=== PATIENT | male | born 1990 | race Caucasian/White ===

== ENCOUNTER 2020-11-13 11:46 | Day surgery (SDC) | payer OTHER ==
[2020-11-13] VITALS (7 sets, daily range): BP systolic 140–146; BP diastolic 78–84; PULSE 49–98; TEMP 97.7–99.6
[~2020-11-13] VITALS: Ht 193 cm; Wt 98.6 kg
[~2020-11-13 11:46] MED LIST: NO HOME MEDICATIONS
--- NOTE | 2020-11-13 14:15 | NUR ---
Patient continues to await surgery. Apprehensive while waiting. Order for Valium 10mg po and given. Spouse in room. IV fluids infusing.
--- NOTE | 2020-11-13 18:30 | NUR ---
Patient received post op from [facility] nurse Sofi. Patient at bedside. Vitals stable on room air. One tab Percocet for pain, we discussed side effects of norco. He tolerated his meal, denies nausea. Iv to Int.
--- NOTE | 2020-11-13 19:38 | NUR ---
Pt. has met discharge criteria. Pt. tolerating po, urinating, ambulating and tolerating pain. Discharge paper work given, and reviewed. Pt. voices understanding. INT discontinued from rt. hand. Pt. dressed and escorted out by this nurse.
== END 2020-11-13 19:45 | disposition home or self-care (01) ==
LOC: SDCO 11:46 → SURG 17:57 → SDCO 19:45
DX: C62.92 Malignant neoplasm of left testis, unspecified whether descended or undescended (principal); E80.4 Gilbert syndrome; D70.9 Neutropenia, unspecified; Z90.89 Acquired absence of other organs; Z79.891 Long term (current) use of opiate analgesic; Z20.822 Contact with and (suspected) exposure to COVID-19
CPT/HCPCS: OP; J0690; J2405; J2704; J3010; J7120